=== PATIENT | female | born 1960 | race Caucasian/White ===

== ENCOUNTER 2021-07-10 18:42 | Emergency (ER) | payer OTHER ==
[2021-07-10] MEDS ORDERED: Boostrix 0.5 ML (Tdap) VIAL ONE (18:47)
[2021-07-10] MEDS ORDERED: Ketorolac Tromethamine 30 MG/ML VIAL ONE (20:51)
[2021-07-10] MEDS ORDERED: Bacitracin 1 PK ONE (20:51)
[2021-07-10] MEDS ORDERED: Acetaminophen 500 MG TAB ONE (20:51)
== END 2021-07-10 21:12 | disposition home or self-care (01) ==
LOC: ERS 18:42
DX: S01.112A Laceration without foreign body of left eyelid and periocular area, initial encounter (principal); S00.83XA Contusion of other part of head, initial encounter; E78.5 Hyperlipidemia, unspecified; V18.4XXA Pedal cycle driver injured in noncollision transport accident in traffic accident, initial encounter
CPT/HCPCS: 12011; 70450; 70486; 90471; 90715; 96374; G0390; J1885